=== PATIENT | male | born 1945 | race African-American/Black ===

== ENCOUNTER 2022-02-26 16:46 | Inpatient (IN) ==
[2022-02-26] MEDS ORDERED: ENOXAPARIN 100 MG/ML SYRINGE SUBCUT STA (17:28)
[2022-02-26] MEDS ORDERED: ASPIRIN 325 MG TABLET PO STA (17:28)
[2022-02-26 17:50] LABS: Basophils % 0.1 % (0.0-0.8); Eosinophils % 0.2 % (0.00-10.9); Hematocrit 33.9 VOL% (42.0-52.0); Hemoglobin 10.9 GM/DL (14.0-18.0); Immature Granulocytes % 0.5 %; Immature Granulocytes Absolute 0.07 #; Lymphocytes # 1.5 10*3/uL (1.4-4.0); Lymphocytes % 9.7 % (21.2-54.2); Mean Corpuscular HGB Conc 32.2 GM/DL (32-36); Mean Platelet Volume 10.8 FL (9.6-12.0); Monocytes # 1.1 10*3/uL (0.11-0.8); Monocytes % 7.6 % (1.7-12.7); Neutrophils % 81.9 % (38.7-73.9); Platelet Count 301 T/CUMM (130-400); Red Blood Count 3.99 MC/CUMM (3.8-5.5); Red Cell Distribution Width 14.8 % (9.3-17.3); White Blood Count 14.9 T/CUMM (4-12)
[2022-02-26 18:13] LABS: Albumin 2.8 G/DL (3.4-5.0); Calcium 9.9 MG/DL (8.5-10.1); Osmolality,Calculated 276.8 MOS/KG (273-304); Potassium 4.2 MMOL/L (3.5-5.1); Total Protein 7.2 G/DL (6.4-8.2)
[2022-02-26] MEDS ORDERED: MAGNESIUM SULF RIDER 2 GM/50 ML PREMIX IV STA (19:16)
[2022-02-26] MEDS ORDERED: hydrALAZINE 20 MG/1 ML VIAL IV PRN (21:17)
[2022-02-26] MEDS ORDERED: GLUCAGON 1 MG VIAL IM PRN (21:17)
[2022-02-26] MEDS ORDERED: ONDANSETRON 4 MG/2 ML VIAL IV PRN (21:17)
[2022-02-26] MEDS ORDERED: ACETAMINOPHEN 325 MG TABLET PO PRN (21:17)
[2022-02-26] MEDS ORDERED: MORPHINE 2 MG/1 ML SYRINGE IV PRN (21:17)
[2022-02-26] MEDS ORDERED: DEXTROSE 10% 250 ML BAG IV PRN (21:17)
[2022-02-26] MEDS ORDERED: KETOROLAC 30 MG/1 ML VIAL IV ONE (21:24)
[2022-02-26 21:57] LABS: Mucus,Urine Occasional /LPF (Occasional); RBC,Urine <1 /HPF (0-4); Squamous Epithelial Cell,Urine Occasional /HPF (0-10); Urine Appearance Clear (Clear); Urine Color Yellow (Yellow); Urine Specific Gravity 1.015 (1.001-1.035); Urine pH 5.5 (4.5-8.0)
[2022-02-26 21:58] LABS: Bilirubin,Urine Negative (Negative); Blood, Urine Small mg/dL (Negative); Glucose,Urine (UA) Negative (Negative); Ketones,Urine Trace mg/dL (Negative); Nitrite,Urine Negative (Negative); Protein,Urine 30 mg/dL (Negative)
[2022-02-27 04:39] LABS: Basophils % 0.2 % (0.0-0.8); Eosinophils % 0.2 % (0.00-10.9); Hematocrit 27.7 VOL% (42.0-52.0); Hemoglobin 8.9 GM/DL (14.0-18.0); Immature Granulocytes % 0.5 %; Immature Granulocytes Absolute 0.06 #; Lymphocytes # 1.6 10*3/uL (1.4-4.0); Mean Corpuscular HGB Conc 32.1 GM/DL (32-36); Mean Corpuscular Volume 84.7 FL (87-102); Mean Platelet Volume 10.3 FL (9.6-12.0); Monocytes # 1.2 10*3/uL (0.11-0.8); Monocytes % 9.6 % (1.7-12.7); Neutrophils % 76.5 % (38.7-73.9); Platelet Count 233 T/CUMM (130-400); Red Blood Count 3.27 MC/CUMM (3.8-5.5); Red Cell Distribution Width 14.6 % (9.3-17.3)
[2022-02-27 05:09] LABS: Calcium 9.1 MG/DL (8.5-10.1); Osmolality,Calculated 275.8 MOS/KG (273-304); Potassium 3.5 MMOL/L (3.5-5.1); Risk Ratio 3.07; Thyroid Stimulating Hormone 1.56 uIU/ml (0.358-3.74); VLDL Cholesterol 13.2 MG/DL
[2022-02-27] MEDS: PANTOPRAZOLE 40 MG TABLET PO SCH (08:54)
[2022-02-27] MEDS: ENOXAPARIN 100 MG/ML SYRINGE SUBCUT SCH ×2 (09:00→20:31)
[2022-02-27] MEDS: predniSONE 20 MG TABLET PO SCH (16:14)
[2022-02-28 09:06] LABS: Basophils % 0.1 % (0.0-0.8); Hemoglobin 9.9 GM/DL (14.0-18.0); Immature Granulocytes % 0.5 %; Immature Granulocytes Absolute 0.05 #; Lymphocytes % 9.5 % (21.2-54.2); Mean Corpuscular HGB Conc 31.9 GM/DL (32-36); Mean Corpuscular Volume 84.2 FL (87-102); Monocytes # 0.5 10*3/uL (0.11-0.8); Monocytes % 4.4 % (1.7-12.7); Neutrophils % 85.5 % (38.7-73.9); Platelet Count 273 T/CUMM (130-400); Red Blood Count 3.68 MC/CUMM (3.8-5.5); Red Cell Distribution Width 14.4 % (9.3-17.3); White Blood Count 10.3 T/CUMM (4-12)
[2022-02-28] MEDS: predniSONE 20 MG TABLET PO SCH (09:19)
[2022-02-28] MEDS: ENOXAPARIN 100 MG/ML SYRINGE SUBCUT SCH ×2 (09:20→20:49)
[2022-02-28] MEDS: PANTOPRAZOLE 40 MG TABLET PO SCH (09:20)
[2022-02-28 09:23] LABS: Albumin 2.2 G/DL (3.4-5.0); Bilirubin,Total 0.4 MG/DL (0.20-1.00); Calcium 9.4 MG/DL (8.5-10.1); Osmolality,Calculated 284.5 MOS/KG (273-304); Potassium 3.7 MMOL/L (3.5-5.1); Total Protein 6.5 G/DL (6.4-8.2)
[2022-03-01 05:24] LABS: Hematocrit 32.6 VOL% (42.0-52.0); Hemoglobin 10.4 GM/DL (14.0-18.0); Immature Granulocytes % 0.5 %; Immature Granulocytes Absolute 0.05 #; Lymphocytes # 1.1 10*3/uL (1.4-4.0); Lymphocytes % 12.1 % (21.2-54.2); Mean Corpuscular HGB Conc 31.9 GM/DL (32-36); Mean Corpuscular Volume 84.5 FL (87-102); Mean Platelet Volume 10.9 FL (9.6-12.0); Monocytes # 0.6 10*3/uL (0.11-0.8); Neutrophils % 80.4 % (38.7-73.9); Platelet Count 298 T/CUMM (130-400); Red Blood Count 3.86 MC/CUMM (3.8-5.5); Red Cell Distribution Width 14.4 % (9.3-17.3); White Blood Count 9.2 T/CUMM (4-12)
[2022-03-01 05:45] LABS: Alanine Aminotransferase 11 U/L (16-61); Albumin 2.2 G/DL (3.4-5.0); Alkaline Phosphatase 71 U/L (45-117); Aspartate Amino Transferase 12 U/L (0-37); Bilirubin,Total < 0.39 MG/DL (0.20-1.00); Blood Urea Nitrogen 31 MG/DL (7-18); Calcium 9.5 MG/DL (8.5-10.1); Carbon Dioxide 25 MMOL/L (21-32); Chloride 110 MMOL/L (98-107); Glucose 159 MG/DL (74-106); Osmolality,Calculated 286.5 MOS/KG (273-304); Potassium 3.8 MMOL/L (3.5-5.1); Sodium 139 MMOL/L (136-145); Total Protein 6.4 G/DL (6.4-8.2)
[2022-03-01] MEDS: PANTOPRAZOLE 40 MG TABLET PO SCH (09:18)
[2022-03-01] MEDS: predniSONE 20 MG TABLET PO SCH (09:18)
[2022-03-01] MEDS: ENOXAPARIN 100 MG/ML SYRINGE SUBCUT SCH (09:19)
[2022-03-01] MEDS: CARBIDOPA/LEVODOPA 10-100 MG TABLET PO SCH ×2 (09:26→20:19)
[2022-03-01 13:23] LABS: Bilirubin,Urine Negative (Negative); Blood, Urine Negative (Negative); Glucose,Urine (UA) Negative (Negative); Ketones,Urine Negative (Negative); Mucus,Urine Occasional /LPF (Occasional); Nitrite,Urine Negative (Negative); Protein,Urine Negative (Negative); RBC,Urine 1 /HPF (0-4); Squamous Epithelial Cell,Urine Occasional /HPF (0-10); Urine Appearance Clear (Clear); Urine Color Yellow (Yellow)
[2022-03-01] MEDS: APIXABAN 5 MG TABLET PO SCH (20:19)
[2022-03-02 05:35] LABS: Basophils % 0.1 % (0.0-0.8); Eosinophils % 0.1 % (0.00-10.9); Hematocrit 29.1 VOL% (42.0-52.0); Hemoglobin 9.2 GM/DL (14.0-18.0); Immature Granulocytes % 0.6 %; Immature Granulocytes Absolute 0.05 #; Lymphocytes # 1.3 10*3/uL (1.4-4.0); Mean Corpuscular HGB Conc 31.6 GM/DL (32-36); Mean Corpuscular Volume 84.6 FL (87-102); Mean Platelet Volume 10.9 FL (9.6-12.0); Monocytes # 0.6 10*3/uL (0.11-0.8); Monocytes % 6.4 % (1.7-12.7); Neutrophils % 78.8 % (38.7-73.9); Platelet Count 285 T/CUMM (130-400); Red Blood Count 3.44 MC/CUMM (3.8-5.5); Red Cell Distribution Width 14.2 % (9.3-17.3); White Blood Count 9.1 T/CUMM (4-12)
[2022-03-02 06:05] LABS: Alanine Aminotransferase 11 U/L (16-61); Albumin 2.2 G/DL (3.4-5.0); Alkaline Phosphatase 83 U/L (45-117); Aspartate Amino Transferase 14 U/L (0-37); Bilirubin,Total < 0.39 MG/DL (0.20-1.00); Blood Urea Nitrogen 23 MG/DL (7-18); Carbon Dioxide 26 MMOL/L (21-32); Chloride 110 MMOL/L (98-107); Glucose 122 MG/DL (74-106); Osmolality,Calculated 285.3 MOS/KG (273-304); Potassium 4.1 MMOL/L (3.5-5.1); Sodium 141 MMOL/L (136-145); Total Protein 6.2 G/DL (6.4-8.2)
[2022-03-02] MEDS: CARBIDOPA/LEVODOPA 10-100 MG TABLET PO SCH ×2 (11:03→20:51)
[2022-03-02] MEDS: PANTOPRAZOLE 40 MG TABLET PO SCH (11:03)
[2022-03-02] MEDS: APIXABAN 5 MG TABLET PO SCH ×2 (11:04→20:51)
[2022-03-02] MEDS: predniSONE 20 MG TABLET PO SCH (11:04)
[2022-03-02 16:49] VITALS: BP 170/82
== END 2022-03-02 22:59 | disposition home health service (06) | DRG 175 ==
LOC: N.ED 16:46 → N.EDINP 16:46 → SUATTDRO 21:17 → N.EDINP 02-27 05:19 → N.TELES 02-27 06:07 → SUATTDRO 02-27 15:55
PROVIDERS: ADMIT Internal Medicine; ATTEND Internal Medicine